=== PATIENT | female | born 1995 | race Caucasian/White ===

== ENCOUNTER 2019-12-12 04:47 | Emergency (ER) | payer SELFPAY ==
[~2019-12-12] VITALS: Ht 175.3 cm; Wt 81.0 kg
[2019-12-12 05:00] VITALS: BP 121/72
[2019-12-12] MEDS ORDERED: IV NORMAL SALINE 1000ML BAG 1,000 ML IV ONE (06:00)
[2019-12-12] MEDS ORDERED: KETOROLAC 15 MG/ML VIAL. IVP ONE (06:00)
[2019-12-12] MEDS ORDERED: METOCLOPRAMIDE HCL 10 MG/2 ML VIAL. IVP ONE (06:00)
--- NOTE | 2019-12-12 06:04 | PHYS DOC ---
Past Medical History Past Medical History: Anxiety, Constipation, Depression (MYLENE GREGORY DO) Past Surgical History: No Surgical History (MYLENE GREGORY DO) Smoking Status: Never Smoker Alcohol Use: None Drug Use: None (MYLENE GREGORY DO) Adult General Chief Complaint Chief Complaint: ABDOMINAL PAIN HPI HPI 24-year-old female presents with report of lower abdominal pain which started yesterday morning. Patient does report associated nausea and vomiting. Reports history of chronic constipation. Patient does report pain is different than her typical constipation issue. Reports radiation to left flank. Denies hematuria or dysuria. Denies . Patient reports Implanon. Denies trauma. (MYLENE GREGORY DO) Review of Systems Review of Systems Constitutional: Denies fever or chills Eyes: Denies redness or eye pain HENT: Denies nasal congestion or sore throat Respiratory: Denies cough or shortness of breath Cardiovascular: Denies chest pain or palpitations GI: Reports lower abdominal pain, nausea, vomiting, and constipation; denies diarrhea : Denies dysuria or hematuria Musculoskeletal: Reports left flank/back pain; denies joint pain Integument: Denies rash or skin lesions Neurologic: Denies headache, focal weakness or sensory changes Complete systems were reviewed and found to be within normal limits, except as documented in this note. (MYLENE GRGEORY DO) Current Medications Current Medications Current Medications Medications (Trade) Dose Ordered Sig/Jcarlos Start Time Stop Time Status Last Admin Dose Admin Ketorolac Tromethamine (Toradol 15mg Vial) 15 mg 1X ONCE 12/12/19 06:00 12/12/19 06:01 DC 12/12/19 06:13 15 MG Metoclopramide HCl (Reglan Vial) 10 mg 1X ONCE 12/12/19 06:00 12/12/19 06:01 DC 12/12/19 06:13 10 MG Sodium Chloride 1,000 ml @ 1,000 mls/hr 1X ONCE 12/12/19 06:00 12/12/19 06:59 DC 12/12/19 06:08 1,000 MLS/HR (ROMULO RAJAN DO) Allergies Allergies Allergies Coded Allergies Type Severity Reaction Last Updated Verified No Known Drug Allergies 10/17/16 No (ROMULO RAJAN DO) Physical Exam Physical Exam Constitutional: Well developed, well nourished, no acute distress, non-toxic appearance HENT: Normocephalic, atraumatic, oropharynx moist Eyes: Conjunctiva normal, no discharge Neck: Normal range of motion, no tenderness, supple Cardiovascular: Heart rate normal, regular rhythm Lungs & Thorax: Bilateral breath sounds clear to auscultation, no wheezing Abdomen: Soft, bilateral lower quadrant tenderness, voluntary guarding, no distention or rebound tenderness Skin: Warm, dry, no erythema, no rash Back: No tenderness, left CVA tenderness Extremities: No tenderness, ROM intact, no edema Neurologic: Alert and oriented X 3, no focal deficits noted Psychologic: Affect normal, judgment normal (GREGORY,MYLENE R DO) Current Patient Data Vital Signs Vital Signs Date Time Temp Pulse Resp B/P (MAP) Pulse Ox O2 Delivery O2 Flow Rate FiO2 12/12/19 05:00 98.2 87 16 121/72 (88) 96 Room Air 98.2 ([facility] DO) Lab Values Laboratory Tests Test 12/12/19 05:25 12/12/19 06:05 12/12/19 06:22 White Blood Count 14.5 x10^3/uL (4.0-11.0) H Red Blood Count 4.53 x10^6/uL (3.50-5.40) Hemoglobin 12.3 g/dL (12.0-15.5) Hematocrit 37.9 % (36.0-47.0) Mean Corpuscular Volume 84 fL (79-100) Mean Corpuscular Hemoglobin 27 pg (25-35) Mean Corpuscular Hemoglobin Concent 33 g/dL (31-37) Red Cell Distribution Width 16.2 % (11.5-14.5) H Platelet Count 295 x10^3/uL (140-400) Neutrophils (%) (Auto) 86 % (31-73) H Lymphocytes (%) (Auto) 8 % (24-48) L Monocytes (%) (Auto) 5 % (0-9) Eosinophils (%) (Auto) 1 % (0-3) Basophils (%) (Auto) 0 % (0-3) Neutrophils # (Auto) 12.5 x10^3/uL (1.8-7.7) H Lymphocytes # (Auto) 1.2 x10^3/uL (1.0-4.8) Monocytes # (Auto) 0.7 x10^3/uL (0.0-1.1) Eosinophils # (Auto) 0.1 x10^3/uL (0.0-0.7) Basophils # (Auto) 0.0 x10^3/uL (0.0-0.2) Segmented Neutrophils % 84 % (35-66) H Band Neutrophils % 1 % (0-9) Lymphocytes % 9 % (24-48) L Monocytes % 6 % (0-10) Platelet Estimate Adequate (ADEQUATE) Sodium Level 135 mmol/L (136-145) L Potassium Level 4.0 mmol/L (3.5-5.1) Chloride Level 102 mmol/L (98-107) Carbon Dioxide Level 24 mmol/L (21-32) Anion Gap 9 (6-14) Blood Urea Nitrogen 10 mg/dL (7-20) Creatinine 0.8 mg/dL (0.6-1.0) Estimated GFR (Cockcroft-Gault) 87.4 BUN/Creatinine Ratio 13 (6-20) Glucose Level 121 mg/dL (70-99) H Calcium Level 8.4 mg/dL (8.5-10.1) L Magnesium Level 1.9 mg/dL (1.8-2.4) Total Bilirubin 0.4 mg/dL (0.2-1.0) Aspartate Amino Transferase (AST) 27 U/L (15-37) Alanine Aminotransferase (ALT) 56 U/L (14-59) Alkaline Phosphatase 62 U/L (46-116) Total Protein 6.8 g/dL (6.4-8.2) Albumin 3.3 g/dL (3.4-5.0) L Albumin/Globulin Ratio 0.9 (1.0-1.7) L Lipase 76 U/L (73-393) Urine Collection Type Unknown Urine Color Yellow Urine Clarity Clear Urine pH 8.0 (<5.0-8.0) Urine Specific [place] 1.025 (1.000-1.030) Urine Protein Negative mg/dL (NEG-TRACE) Urine Glucose (UA) Negative mg/dL (NEG) Urine Ketones (Stick) Negative mg/dL (NEG) Urine Blood Negative (NEG) Urine Nitrite Negative (NEG) Urine Bilirubin Negative (NEG) Urine Urobilinogen Dipstick 0.2 mg/dL (0.2 mg/dL) Urine Leukocyte Esterase Large (NEG) Urine RBC 0 /HPF (0-2) Urine WBC 11-20 /HPF (0-4) Urine Squamous Epithelial Cells Mod /LPF Urine Bacteria Many /HPF (0-FEW) POC Urine HCG, Qualitative Hcg negative (Negative) Laboratory Tests 12/12/19 05:25 Laboratory Tests 12/12/19 05:25 (ROMULO RAJAN DO) Lab Values Laboratory Tests Test 12/12/19 05:25 Sodium Level 135 mmol/L (136-145) L Potassium Level 4.0 mmol/L (3.5-5.1) Chloride Level 102 mmol/L (98-107) Carbon Dioxide Level 24 mmol/L (21-32) Anion Gap 9 (6-14) Blood Urea Nitrogen 10 mg/dL (7-20) Creatinine 0.8 mg/dL (0.6-1.0) Estimated GFR (Cockcroft-Gault) 87.4 BUN/Creatinine Ratio 13 (6-20) Glucose Level 121 mg/dL (70-99) H Calcium Level 8.4 mg/dL (8.5-10.1) L Magnesium Level Pending Total Bilirubin Pending Aspartate Amino Transferase (AST) Pending Alanine Aminotransferase (ALT) Pending Alkaline Phosphatase Pending Total Protein Pending Albumin Pending Albumin/Globulin Ratio Pending Lipase Pending Laboratory Tests 12/12/19 05:25 (MYLENE GREGORY DO) EKG EKG [] (MYLENE GREGORY DO) Radiology/Procedures Radiology/Procedures [] (MYLENE GREGORY DO) Radiology/Procedures CT of the abdomen and pelvis shows that patient has a left adnexal mass most likely ovarian cyst. There is also a 5 mm right renal stone and possibly 1 mm nonobstructing left ureteral stone. (ROMULO RAJAN DO) Course & Med Decision Making Course & Med Decision Making Pertinent Labs and Imaging studies reviewed. (See chart for details) Patient presents with lower abdominal pain with associated nausea/vomiting and constipation. Afebrile. Labs obtained and pending. CT abdomen/pelvis also pending. IV fluid hydration provided. Pain/nausea addressed. Sign out given to Dr. Rajan for further evaluation and final disposition. Discussed current findings and plan with patient, who acknowledges understanding and agreement. (MYLENE GREGORY DO) Course & Med Decision Making CT shows very small possible left ureteral stone and a right 5 mm renal stone. Left ovarian cyst most likely. I ordered an ultrasound of the pelvis. Ultrasound shows left ovarian cyst that is 4.5 cm Discussed results and plan of care patient. Patient follow-up with her [employer] as an outpatient. Patient will be discharged home. Discussed results and plan of care with patient. Patient is instructed to follow up with PCP in one to 2 days. Appropriate discharge instructions given to patient to return to the ED or to seek immediate medical evaluation. Patient is instructed to return to the ED if symptoms worsen or if any concerns. (ROMULO RAJAN DO) Dragon Disclaimer Dragon Disclaimer This electronic medical record was generated, in whole or in part, using a voice recognition dictation system. (MYLENE GREGORY DO) Departure Departure Impression: Primary Impression: Abdominal pain Additional Impression: Ovarian cyst Disposition: HOME, SELF-CARE Condition: STABLE Referrals: NO PCP (PCP) Patient Instructions: Abdominal Pain (Nonspecific), Ovarian Cyst Additional Instructions: Discussed results and plan of care with patient. Patient is instructed to follow up with PCP in one to 2 days. Appropriate discharge instructions given to patient to return to the ED or to seek immediate medical evaluation. Patient is instructed to return to the ED if symptoms worsen or if any concerns. Problem Qualifiers Primary Impression: Abdominal pain Abdominal location: lower abdomen, unspecified Qualified Codes: R10.30 - Lower abdominal pain, unspecified MYLENE GREGORY DO Dec 12, 2019 06:04 ROMULO RAJAN DO Dec 12, 2019 08:03
[2019-12-12 06:09] LABS: CALCIUM 8.4 mg/dL (8.5-10.1); CREATININE 0.8 mg/dL (0.6-1.0); GFR 87.4
[2019-12-12 06:11] LABS: ALBUMIN 3.3 g/dL (3.4-5.0); ALBUMIN/GLOBULIN RATIO 0.9 (1.0-1.7); MAGNESIUM 1.9 mg/dL (1.8-2.4); TOTAL BILIRUBIN 0.4 mg/dL (0.2-1.0); TOTAL PROTEIN 6.8 g/dL (6.4-8.2)
[2019-12-12 06:26] LABS: BASO % 0 % (0-3); EOS # 0.1 x10^3/uL (0.0-0.7); EOS % 1 % (0-3); HEMATOCRIT 37.9 % (36.0-47.0); HEMOGLOBIN 12.3 g/dL (12.0-15.5); LYMPH # 1.2 x10^3/uL (1.0-4.8); LYMPH % 8 % (24-48); MEAN CORPUSCULAR HEMOGLOBIN 27 pg (25-35); MEAN CORPUSCULAR HGB CONC 33 g/dL (31-37); MEAN CORPUSCULAR VOLUME 84 fL (79-100); MONO # 0.7 x10^3/uL (0.0-1.1); MONO % 5 % (0-9); NEUT # 12.5 x10^3/uL (1.8-7.7); NEUT % 86 % (31-73); PLATELET COUNT 295 x10^3/uL (140-400); RED BLOOD COUNT 4.53 x10^6/uL (3.50-5.40); RED CELL DISTRIBUTION WIDTH 16.2 % (11.5-14.5); WHITE BLOOD COUNT 14.5 x10^3/uL (4.0-11.0)
[2019-12-12 06:52] LABS: BILIRUBIN,URINE NEGATIVE (NEG); CLARITY,URINE CLEAR; COLOR,URINE YELLOW; NITRITE,URINE NEGATIVE (NEG); PROTEIN,URINE NEGATIVE (NEG-TRACE); UROBILINOGEN,URINE 0.2 mg/dL (0.2 mg/dL)
--- NOTE | 2019-12-12 07:15 | RAD ---
INDICATION: Left abdomen pain COMPARISON: None. TECHNIQUE: Axial CT images obtained through the abdomen and pelvis without contrast. Limited assessment of solid organ structures and vasculature secondary to lack of intravenous contrast. One or more of the following individualized dose reduction techniques were utilized for this examination: 1. Automated exposure control; 2. Adjustment of the mA and/or kV according to patient size; 3. Use of iterative reconstruction technique. FINDINGS: Abdominal aorta is not aneurysmal. No intrahepatic bile duct dilation. Limited evaluation of the pancreas without contrast. Moderate stool throughout the colon. Spleen unremarkable. No hydronephrosis. Urinary bladder partially distended. Nonobstructive right renal stone. There are some calcifications within the left hemipelvis. Suspected cystic lesion left adnexa measuring up to approximately 25 mm. No right lower quadrant inflammatory changes. No dilated loops of bowel to suggest obstruction. IMPRESSION: * No hydronephrosis. There is a 1 mm high density structure seen at the left proximal ureter which could be secondary to a tiny stone or high density debris. This does not obstruct the lumen. Nonobstructive right renal stone is identified measuring 5 mm. * Suspected low-density lesion left adnexa. Could be from dominant follicle or cystic lesion in the area and if further clarification is desired ultrasound could further evaluate Electronically signed by: Esdras Heart MD (12/12/2019 7:12 AM) [id number]
[2019-12-12 07:25] LABS: BACTERIA,URINE MANY /HPF (0-FEW); RBC,URINE 0 /HPF (0-2); SQUAMOUS EPITHELIAL CELL,UR MOD /LPF
--- NOTE | 2019-12-12 08:32 | RAD ---
EXAM: Pelvic Ultrasound Complete INDICATION: Left adnexal pain ? TECHNIQUE: Real-time ultrasound of the pelvis with permanent freeze-frame documentation. COMPARISON:?None. ? FINDINGS: ? UTERUS:?Uterus 9.2 x 4.1 x 3.9 cm.? Endometrial thickness 0.2 cm. No uterine or endometrial abnormality. ? RIGHT OVARY/ADNEXA: Right ovary 3.2 x 1.8 x 1.9 cm.? Unremarkable. Normal ovarian blood flow. LEFT OVARY/ADNEXA:?Left ovary 5.7 x 3.3 x 2.7 cm. ?There is a dominant 4.5 cm ovarian cyst present. Normal ovarian blood flow. ? OTHER:?No evidence of significant pelvic free fluid. ? IMPRESSION: ? Dominant left ovarian 4.5 cm cyst. No evidence of torsion. Electronically signed by: Georgiana Pena MD (12/12/2019 8:29 AM) [id number]
[2019-12-12 10:23] LABS: % BANDS 1 % (0-9); % LYMPHS 9 % (24-48); % MONOS 6 % (0-10); % SEGS 84 % (35-66)
[2019-12-12 10:24] LABS: PLT ESTIMATE ADEQUATE (ADEQUATE)
== END 2019-12-12 09:34 | disposition home or self-care (01) ==
LOC: ER 04:47
DX: N83.202 Unspecified ovarian cyst, left side (principal); R10.31 Right lower quadrant pain; R10.32 Left lower quadrant pain; R11.2 Nausea with vomiting, unspecified; F41.9 Anxiety disorder, unspecified; F32.9 Major depressive disorder, single episode, unspecified
CPT/HCPCS: 36415; 74176; 76856; 80053; 81001; 81025; 83690; 83735; 85007; 85025; 87086; 96361; 96374; 96375; 99285; J1885; J2765; J7030